=== PATIENT | female | born 1960 | race Caucasian/White ===

== ENCOUNTER 2016-10-29 12:31 | Emergency (ER) | payer SELFPAY ==
--- NOTE | 2016-10-29 13:28 | RAD ---
EXAMINATION:CHEST - 2 VIEWS CLINICAL INDICATION: Cough for 2 weeks. COMPARISON: 01/29/2015. FINDINGS: The cardiomediastinal silhouette is within normal limits. There is no adenopathy identified. There is no pleural effusion. There is very mild bibasilar atelectasis. No dense consolidation is identified. The osseous structures are unremarkable for age. IMPRESSION: Mild bibasilar atelectasis. No consolidation or effusion is identified.
[2016-10-29] MEDS ORDERED: ALBUTEROL/IPRATROPIUM 2.5/0.5 MG 3 ML/EACH DOSE ONE (13:44)
== END 2016-10-29 14:17 | disposition home or self-care (01) ==
LOC: ED 12:31
DX: J98.01 Acute bronchospasm (principal); B34.9 Viral infection, unspecified; I50.9 Heart failure, unspecified; F17.210 Nicotine dependence, cigarettes, uncomplicated